=== PATIENT | female | born 1990 | race Caucasian/White ===

== ENCOUNTER → 2019-12-03 | Emergency (ER) | payer OTHER ==
[~2019-12-03] VITALS: Ht 167.6 cm; Wt 69.9 kg
[~2019-12-03] MED LIST: CALADRYL 1%-8%177 ML TOP; MEDROLPACK PO; PRENA1 TRUE CO1 EACH; VISTARIL25 MG PO
== END | disposition home or self-care (01) ==
LOC: ER 08:17
DX: O26.86 Pruritic urticarial papules and plaques of pregnancy (PUPPP) (principal); Z34.82 Encounter for supervision of other normal pregnancy, second trimester

== ENCOUNTER 2020-01-20 10:29 | Outpatient (CLI) | payer OTHER | END 2020-01-20 12:37 | disposition home or self-care (01) | LOC: NST 10:29 | PROVIDERS: ATTEND Specialist | DX: Z34.83 Encounter for supervision of other normal pregnancy, third trimester (principal); O24.419 Gestational diabetes mellitus in pregnancy, unspecified control ==

== ENCOUNTER 2020-01-27 10:55 | Outpatient (CLI) | payer OTHER | END 2020-01-27 11:29 | disposition home or self-care (01) | LOC: NST 10:55 | PROVIDERS: ATTEND Specialist | DX: Z34.83 Encounter for supervision of other normal pregnancy, third trimester (principal) ==

== ENCOUNTER 2020-02-04 11:31 | Outpatient (CLI) | payer OTHER | END 2020-02-04 12:25 | disposition home or self-care (01) | LOC: NST 11:31 | PROVIDERS: ATTEND Specialist | DX: Z34.83 Encounter for supervision of other normal pregnancy, third trimester (principal) ==